=== PATIENT | male | born 1985 | race Caucasian/White ===

== ENCOUNTER 2019-05-29 22:35 | Emergency (ER) | payer OTHER ==
[2019-05-29] MEDS ORDERED: Fluorescein Opthalmic Strip ONE (23:12)
[2019-05-29] MEDS ORDERED: Proparacaine 0.5% Opth 15 ML BOT ONE (23:12)
[2019-05-29] MEDS ORDERED: Gentamicin Ophth Soln 0.3% 5 ml Bottle ONE (23:31)
== END 2019-05-29 23:39 ==
LOC: NAV ERS 22:35
DX: T15.01XA Foreign body in cornea, right eye, initial encounter (principal); Z87.891 Personal history of nicotine dependence
CPT/HCPCS: 65222

== ENCOUNTER 2020-03-10 20:29 | Emergency (ER) | payer OTHER ==
[2020-03-10] MEDS ORDERED: Fluorescein Opthalmic Strip ONE (20:39)
[2020-03-10] MEDS ORDERED: Proparacaine 0.5% Opth 15 ML BOT ONE (20:39)
[2020-03-10] MEDS ORDERED: Sodium Chloride 0.9% 500 ML ONE (21:07)
[2020-03-10] MEDS ORDERED: Gentamicin Ophth Soln 0.3% 5 ml Bottle ONE (21:29)
== END 2020-03-10 22:10 ==
LOC: NAV ERS 20:29
DX: T15.01XA Foreign body in cornea, right eye, initial encounter (principal); Z87.891 Personal history of nicotine dependence
CPT/HCPCS: 65222; J7030